=== PATIENT | female | born 1970 | race Caucasian/White ===

== ENCOUNTER 2025-09-19 08:05 | Outpatient (REF) | payer MEDICAID, SELFPAY ==
--- OUTSIDE RECORDS SUMMARY | 2025-09-18 11:00 | XMS_ITS | Encounter Summary ---
Author Organization [employer] Address [address] [place] [address] [address] [place] [address] Care Team Providers Care Dietary Clerk Name Role Phone Ivy Jimenez DO Primary Care Provider Reason for Referral * Consultation (Urgent) - Pending Review Specialty Diagnoses / Procedures Referred By Jason templeton Referred To Contact Gastroenterology Diagnoses Colon cancer screening Ivy Jimenez DO [address] [place] [address] Phone: tel: fax: Referral ID Status Reason Start Date Expiration Date Visits Requested Visits Authorized [id number] Pending Review Specialty Services Required 09/18/2026 1 1 * Imaging (Routine) - Authorized Specialty Diagnoses / Procedures Referred By Jason templeton Referred To Contact Radiology Diagnoses Breast cancer screening by mammogram Procedures BI Mammogram Screening Tomosynthesis Bilateral Ivy Jimenez DO [address] [place] [address] Phone: tel: fax: [facility] Referral ID Status Reason Start Date Expiration Date V isits Requested Visits Authorized [id number] Authorized 09/18/2025 09/18/2026 1 1 Encounter Details Date Type Department Care Team (Late st Contact Info) Description 09/18/2025 11:00 AM EDT Office Visit [facility] [address] [place] [address] StuartIvy ospina, DO [address] [place] [address] Routine history and physical examination of adult (Primary Dx); BMI 31.0-31.9,adult; Dietary counseling; Exercise counseling; Breast cancer screening by mammogram; Colon cancer screening; Encounter for immunization Social History Tobacco Use Types Packs/Day Years Used Date Smoking Tobacco: Never Smokeless Tobacco: Never Tobacco Cessation:Counseling Given: Not Answered Alcohol Use Standard Drinks/Week Comments Never 0 (1 standard drink = 0.6 oz pur e alcohol) Depression Answer Date Recorded Patient Health Questionnaire-9 Score 0 09/18/2025 Patient Health Questionnaire-9 Score 0 09/18/2025 Last PHQ-9: Questionnaire Data Not on file 1 Housing Stability Answer Date Recorded What is your housing situation today? I have darlyn shultz 09/18/[address] you li ve. Do you have problems with any of the following? None of the above 09/18/2025 Food Insecurity Answer Date Recorded Within the past 12 months, y ou worried that your food would run out before you got money to buy more: Never True 09/18/2025 Within the past 12 months,th e food you bought just didn't last and you didn't have enough money to get more: Never True Transportation Answer Date Recorded In the past 12 months, has l ack of transportation kept you from medical appts, meetings, work or from getting things needed for daily living? No 09/18/2025 Depression Answer Date Recorded Patient Health Questionnaire-2 Score 0 09/18/2025 Internet Access Answer Date Recorded Internet Access Q1 Yes 09/18/2025 Internet Access Q2 Not on file 09/18/2025 Comments No Sex and Gender Information Value Date Recorded Sex Assigned at Female 09/21/2022 10:16 AM EDT Legal Sex Female 10:16 AM EDT Gender Identity Female 09/21/2022 10:16 AM EDT Sexual Orientation Choose not to disclose 2024 3:16 PM EDT documented as of this encounter Last Filed Vital Signs Vital Sign Reading Time Taken Comments Blood Pressure 124/88 09/18/2025 2:11 PM EDT Pulse 90 09/18/2025 10:44 AM EDT Temperature 36.6 C (97.9 F) 09/18/2025 10:44 AM EDT Respiratory Rate 21 09/18/2025 10:44 AM EDT Oxygen Saturation 98% 09/18/2025 10:44 AM EDT Inhaled Oxygen Concentration - - Weight 95.3 kg (210 lb) 09/18/2025 10:44 AM EDT Height 172.7 cm (5' 8 ) 09/18/2025 10:44 AM EDT Body Mass Index 31.93 09/18/2025 10:44 AM EDT documented in this encounter Functional Status * Over the past 2 weeks, how often have you been bothered by any of the following problems? Question Answer Date of Assessment Author Patient Health Questionnaire -2 Score 0 09/18/2025 10:46 AM EDT Judith Munson MA * Little interest or pleasure in doing things Answer Date of Assessment Author Not at all 09/18/2025 10:46 AM EDT Judith Munson MA * Feeling down, depressed, or hopeless Answer Date of Assessment Author Not at all 09/18/2025 10:46 AM EDT Judith Munson MA * Trouble falling or staying asleep, or sleeping too much Answer Date of Assessment Author Not at all 09/18/2025 10:46 AM EDT Judith Munson MA * Feeling tired or having little energy Answer Date of Assessment Author Not at all 09/18/2025 10:46 AM EDT Judith Munson MA * Poor appetite or overeating Answer Date of Assessment Author Not at all 09/18/2025 10:46 AM EDT Judith Munson MA * Feeling bad about yourself - or that you are a failure or have let yourself or your family down Answer Date of Assessment Author Not at all 09/18/2025 10:46 AM EDT Judith Munson MA * Trouble concentrating on things, such as reading the newspaper or watching television Answer Date of Assessment Author Not at all 09/18/2025 10:46 AM EDT Judith Munson MA * Moving or speaking so slowly that other people could have noticed? Or the opposite - being so fidgety or restless that you have been moving around a lot more than usual. Answer Date of Assessment Author Not at all 09/18/2025 10:46 AM OLIVIAT Judith Munson MA * Thoughts that you would be better off or hurting yourself in some way Answer Date of Assessment Author Not at all 09/18/2025 10:46 AM Judith Ferrell MA * Patient Health Questionnaire-9 Score Answer Date of Assessment Author 0 09/18/2025 10:46 AM OLIVIAT Judith Munson MA * Over the last 2 weeks, how often have you been bothered by any of the following problems? Question Answer Date of Assessment Author Feeling nervous, anxious, or on edge 0 09/18/2025 10:46 AM OLIVIAT Judith Munson MA Not being able to stop or co ntrol worrying 0 09/18/2025 10:46 AM Judith Ferrell MA Worrying too much about diff erent things 0 09/18/2025 10:46 AM Judith Ferrell MA Trouble relaxing 0 09/18/2025 10:46 AM Judith Ferrell MA Being so restless that it is hard to sit still 0 09/18/2025 10:46 AM Judith Ferrell MA Becoming easily annoyed or irritable 0 09/18/2025 10:46 AM OLIVIAT Judith Munson MA Feeling afraid as if somethi ng awful might happen 0 09/18/2025 10:46 AM Judith Ferrell MA MARIANN-7 Total Score 0 09/18/2025 10:46 AM Judith Ferrell MA documented as of this encounter Progress Notes * Ivy Jimenez, - 09/18/2025 11:00 AM EDT SUBJECTIVE Alexandre Arroyo is a 55 y.o. female who presents for PE to establish care with new PCP. She last had PCP in [place] ~ two years ago. HPI She has no concerns. She says that most of her siblings have hypertension and diabetes. Her grandparents had diabetes and hypertension but of old age. Her dad is 87 and mom is 76. She is still getting regular periods. She has not had any heartburn since she was treated for H. Pylori in the past. She checks her BP sometimes at work and usually 120s/70s but sometimes her bottom number is elevated. She follows annually with Eye care. She says that they have monitoring her cataracts and may need surgery. She lives with her 14 year old dtr with trisomy 21. She has 6 kids, 14 grandkids and one on the way. She is not currently in a relationship; sexually active with a friend. She has never smoked tobacco. She drinks alcohol occasionally. No drug use. 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 Her last mammo was ~ 4 years ago at [facility]. She was supposed to get a f/u US but never went. She has no pain or breast symptoms. She says that it's been a long time since she had a pap. She says that her last > 14 years but they have always been normal. She has never had a colonoscopy but wants to do one now. Review of Systems Constitutional: Negative for chills and fever. Respiratory: Negative for shortness of breath. Cardiovascular: Negative for chest pain and leg swelling. Gastrointestinal: Negative for abdominal pain, diarrhea and vomiting. Neurological: Negative for headaches. Patient Active Problem List Diagnosis History of COVID-19 History of Helicobacter pylori infection History of nephrolithiasis BMI 31.0-31.9,adult No Known Allergies Past Medical History: Diagnosis Date Nephrolithiasis Past Surgical History: Procedure Laterality Date LITHOTRIPSY 2014 Family History Problem Relation Name Age of Onset Diabetes Mother Hypertension Mother Basal cell carcinoma Mother COPD Father Diabetes Father Hypertension Father Other (Chronic kidney disease) Father Asthma Father Heart attack Father Stroke Sister OBJECTIVE Visit Vitals BP 124/88 (BP Location: Left arm, Patient Position: Sitting, BP Cuff Size: Large adult) Pulse 90 Temp 97.9 ??F (36.6 ??C) (Oral) Resp 21 Ht 5' 8 (1.727 m) Wt 210 lb (95.3 kg) LMP 08/06/2025 (Approximate) SpO2 98% BMI 31.93 kg/m?? OB Status Having periods Smoking Status Never BSA 2.14 m?? Physical Exam Constitutional: Appearance: Normal appearance. HENT: Right Ear: Tympanic membrane, ear canal and external ear normal. Left Ear: Tympanic membrane, ear canal and external ear normal. Nose: Nose normal. Mouth/Throat: Pharynx: Oropharynx is clear. Eyes: Extraocular Movements: Extraocular movements intact. Conjunctiva/sclera: Conjunctivae normal. Pupils: Pupils are equal, round, and reactive to light. Cardiovascular: Rate and Rhythm: Normal rate and regular rhythm. Heart sounds: Normal heart sounds. No murmur heard. Pulmonary: Effort: Pulmonary effort is normal. Breath sounds: Normal breath sounds. Abdominal: General: Bowel sounds are normal. Palpations: Abdomen is soft. There is no mass. Tenderness: There is no abdominal tenderness. Musculoskeletal: General: Normal range of motion. Cervical back: Normal range of motion. Lymphadenopathy: Cervical: No cervical adenopathy. Skin: General: Skin is warm and dry. Neurological: General: No focal deficit present. Mental Status: She is alert and oriented to person, place, and time. Cranial Nerves: No cranial nerve deficit. Psychiatric: Mood and Affect: Mood normal. Patient Health Questionnaire-9 Score: 0 (09/18/2025 10:46 AM) MARIANN-7 Total Score: 0 (09/18/2025 10:46 AM) Assessment/Plan Diagnoses and all orders for this visit: Routine history and physical examination of adult -s/p flu vaccine Aug 2025 -she declines COVID vaccine -Tdap today -PCV20 today -encouraged shingrix vaccine -referred for screening mammo -will have pap appointment scheduled -referred for screening colonoscopy -check basic labs -STI/HIV screening -start intermittent home BP monitoring - T4, Free; Future - Lipid Panel, Standard; Future - TSH; Future - Vitamin D, 25-Hydroxy, Total, Immunoassay; Future - Hepatic Function Panel; Future - Hemoglobin A1c; Future - CBC; Future - Basic Metabolic Panel; Future - Hepatitis B surface antigen, EIA; Future - Chlamydia/N. Gonorrhoeae RNA, TMA, Urogenitial - HIV-1/2 Antigen and Antibodies, Fourth Generation, with Reflexes; Future - Hepatitis C Antibody with Reflex to HCV, RNA, Quantitative, Real-Time PCR; Future - RPR (Monitor) with Reflex to Titer; Future - Hepatitis B Surface Antibody, Qualitative; Future - Varicella zoster antibody, IgG; Future - Measles, Mumps, and Rubella (MMR) Antibodies (IgG) Panel, Immune Status; Future - T-SPOT??.TB; Future - Hepatitis A Antibody, Total; Future - Hepatitis B Core Antibody, Total; Future BMI 31.0-31.9,adult Dietary counseling Exercise counseling -check fasting labs -encouraged [id number] Breast cancer screening by mammogram - BI Mammogram Screening Tomosynthesis Bilateral; Future Colon cancer screening - Referral to Gastroenterology; Future Encounter for immunization - PCV-20 VACCINE 6 wks + - TDAP VACCINE 7 yrs + --Follow-up with me for pap or sooner prn-- Current Outpatient Medications: Blood Pressure kit, 1 each 1 (one) time per week., Disp: 1 kit, Rfl: 0 documented in this encounter Plan of Treatment Scheduled Orders Name Type Priority Associated Diagnoses Orde r Schedule T4, Free Lab Routine Routine history and physical examination of adult Expected: 09/18/2025 (Approximate), Expires: 09/18/2026 Lipid Panel, Standard Lab Routine Routine history and physical examination of adult Expected: 09/18/2025 (Approximate), Expires: 09/18/2026 TSH Lab Routine Routine history and physical examination of adult Expected: 09/18/2025 (Approximate), Expires: 09/18/2026 Vitamin D, 25-Hydroxy, Total, Immunoassay Lab Routine Routine history and physical examination of adult Expected: 09/18/2025 (Approximate), Expires: 09/18/2026 Hepatic Function Panel Lab Routine Routine history and physical examination of adult Expected: 09/18/2025 (Approximate), Expires: 09/18/2026 Hemoglobin A1c Lab Routine Routine history and physical examination of adult Expected: 09/18/2025 (Approximate), Expires: 09/18/2026 CBC Lab Routine Routine history and physical examination of adult Expected: 09/18/2025, Expires: 09/18/2026 Basic Metabolic Panel Lab Routine Routine history and physical examination of adult Expected: 09/18/2025 (Approximate), Expires: 09/18/2026 Hepatitis B surface antigen, EIA Lab Routine Routine history and physical examination of adult Expected: 09/18/2025 (Approximate), Expires: 09/18/2026 Chlamydia/N. Gonorrhoeae RNA, TMA, Urogenitial Microbiology Routine Routine history and physical examination of adult Ordered: 09/18/2025 HIV-1/2 Antigen and Antibodies, Fourth Generation, with Reflexes Lab Routine Routine history and physical examination of adult Expected: 09/18/2025 (Approximate), Expires: 09/18/2026 Hepatitis C Antibody with Reflex to HCV, RNA, Quantitative, Real-Time PCR Lab Routine Routine history and physical examination of adult Expected: 09/18/2025, Expires: 09/18/2026 RPR (Monitor) with Reflex to Titer Lab Routine Routine history and physical examination of adult Expected: 09/18/2025, Expires: 09/18/2026 Hepatitis B Surface Antibody, Qualitative Lab Routine Routine history and physical examination of adult Expected: 09/18/2025 (Approximate), Expires: 09/18/2026 Varicella zoster antibody, IgG Lab Routine Routine history and physical examination of adult Expected: 09/18/2025 (Approximate), Expires: 09/18/2026 Measles, Mumps, and Rubella (MMR) Antibodies (IgG) Panel, Immune Status Lab Routine Routine history and physical examination of adult Expected: 09/18/2025 (Approximate), Expires: 09/18/2026 T-SPOT .TB Lab Routine Routine history and physical examination of adult Expected: 09/18/2025 (Approximate), Expires: 09/18/2026 Hepatitis A Antibody, Total Lab Routine Routine history and physical examination of adult Expected: 09/18/2025 (Approximate), Expires: 09/18/2026 Hepatitis B Core Antibody, Total Lab Routine Routine history and physical examination of adult Expected: 09/18/2025 (Approximate), Expires: 09/18/2026 BI Mammogram Screening Tomosynthesis Bilateral Imaging Routine Breast cancer screening by mammogram Expected: 09/18/2025, Expires: 11/18/2026 Scheduled Referrals Name Type Priority Associated Diagnoses Order Schedule Referral to Gastroenterology Outpatient Referral Urgent Colon cancer screening Expected: 09/18/2025 (Approximate), Expires: 09/18/2026 documented as of this encounter Visit Diagnoses Diagnosis Routine history and physical examination of adult- Primary BMI 31.0-31.9,adult Dietary counseling Dietary surveillance and counseling Exercise counseling Breast cancer screening by mammogram Colon cancer screening Special screening for malignant neoplasms, colon Encounter for immunization documented in this encounter Additional Health Concerns Assessment Noted Time PHQ-9 Depression Total Score: 0 09/18/20 10:46 AM EDT documented as of this encounter Care Teams Dietary Clerk Relationship Specialty Start Date End Date Ivy Jimenez DO [address] [place] [address] PCP - General Family Medicine 09/18/25 documented as of this encounter
--- OUTSIDE RECORDS SUMMARY | 2025-09-19 08:19 | XMS_ITS | Encounter Summary ---
Author Organization [employer] Address [address] [place] [address] Care Team Providers Care Seed Yeast Operator Name Role Phone ZakIvy pepe Primary Care Provider + [phone] Encounter Details Date Type Department Care Team (Latest Contact Info) Description 09/18/2025 Travel Social History Tobacco Use Types Packs/Day Years Used Date Smoking Tobacco: Never Smokeless Tobacco: Never Alcohol Use Standard Drinks/Week Comments Never 0 [...] PM EDT documented as of this encounter Functional Status * Over the [...] 10:46 AM OLIVIAT Judith Munson MA * Feeling down, depressed, or hopeless Answer Date of Assessment Author Not at all 09/18/2025 10:46 AM Judith Ferrell MA * Trouble falling or staying asleep, or sleeping too much Answer Date of Assessment Author Not at all 09/18/2025 10:46 AM EDT Judith Munson MA * Feeling tired or having little energy Answer Date of Assessment Author Not at all 09/18/2025 10:46 AM OLIVIAT Judith Munson MA * Poor appetite or overeating Answer Date of Assessment Author Not at all 09/18/2025 10:46 AM Judith Ferrell MA * Feeling bad about yourself - or that you are a failure or have let yourself or your family down Answer Date of Assessment Author Not at all 09/18/2025 10:46 AM EDJudith Hilliard MA * Trouble concentrating on things, such as reading the newspaper or watching television Answer Date of Assessment Author Not at all 09/18/2025 10:46 AM Judith Ferrell MA * Moving or speaking so slowly that other people could have noticed? Or the opposite - being so fidgety or restless that you have been moving around a lot more than usual. Answer Date of Assessment Author Not at all 09/18/2025 10:46 AM Judith Ferrell MA * Thoughts that you would be better off or hurting yourself in some way Answer Date of Assessment Author Not at all 09/18/2025 10:46 AM EDT Judith Munson MA * Patient Health Questionnaire-9 Score Answer Date of Assessment Author 0 09/18/2025 10:46 AM EDT Judith Munson MA * Over the last 2 weeks, how often have you been bothered by any of the following problems? Question Answer Date of Assessment Author Feeling nervous, anxious, or on edge 0 09/18/2025 10:46 AM EDT Judith Munson MA Not being able to stop or co ntrol worrying 0 09/18/2025 10:46 AM EDT Judith Munson MA Worrying too much about diff erent things 0 09/18/2025 10:46 AM EDT Judith Munson MA Trouble relaxing 0 09/18/2025 10:46 AM EDT Judith Munson MA Being so restless that it is hard to sit still 0 09/18/2025 10:46 AM EDT Judith Munson MA Becoming easily annoyed or irritable 0 09/18/2025 10:46 AM EDT Judith Munson MA Feeling afraid as if somethi ng awful might happen 0 09/18/2025 10:46 AM EDT Judith Munson MA MARIANN-7 Total Score 0 09/18/2025 10:46 AM EDT Judith Munson MA documented as of this encounter Plan of Treatment Not on file documented as of this encounter Visit Diagnoses Not on filedocumented in this encounter Additional Health Concerns Assessment Noted Time PHQ-9 Depression Total Score: 0 09/18/20 10:46 AM EDT documented as of this encounter Care Teams Seed Yeast Operator Relationship Specialty Start Date End Date Ivy Jimenez DO [address] [place] [address] PCP - General Family Medicine 09/18/25 documented as of this encounter
--- OUTSIDE RECORDS SUMMARY | 2025-09-19 08:19 | XMS_ITS | Clinical Summary ---
Author Organization [employer] Address [address] [facility] [address] [place] [address] Care Team Providers Care Cigarette Machine Filler Name Role Phone Ivy Jimenez DO Primary Care Provider Allergies No known active allergies Medications Blood Pressure kit 1 each 1 (one) time per week. 1 kit 09/18/2025 Active Active Problems Problem Noted Date Diagnosed Date History of nephrolithiasis 09/18/2025 BMI 31.0-31.9,adult 09/18/2025 History of COVID-19 09/14/2025 History of Helicobacter pylori infection 025 Encounters Date Type Department Care Team Description 09/18/2025 11:00 AM EDT Office Visit [facility] [address] [place] [address] Ivy Jimenez DO Routine history and physical examination of adult (Primary Dx); BMI 31.0-31.9,adult; Dietary counseling; Exercise counseling; Breast cancer screening by mammogram; Colon cancer screening; Encounter for immunization 09/18/2025 Travel 09/11/2025 Patient Outreach [facility] [address] [place] [address] Ivy Jimenez DO Pre-visit Planning (SDOH unable to reach [facility] ) 09/05/2025 2:10 PM EDT Immunization [facility] [address] [place] [address] May Solis RN Encounter for immunization 09/05/2025 Travel 08/29/2025 Travel 08/28/2025 Travel 08/27/2025 Telephone [facility] [address] [place] [address] Ivy Jimenez DO Chart Prep from Last 3 Months Immunizations Immunization Administration Dates Next Due Influenza, seasonal, injectable, preservative fr ee 09/05/2025 Pfizer Covid-19 Vaccine 12+ 09/12/2021, Pneumococcal Conjugate PCV 20 09/18/2025 Tdap 09/18/2025 Family History Medical History Relation Name Comments Asthma Father COPD Father Chronic kidney disease Father Diabetes Father Heart attack Father Hypertension Father Basal cell carcinoma Mother Diabetes Mother Hypertension Mother Stroke Sister Relation Name Status Comments Father Alive Mother Alive Sister Social History Tobacco Use Types Packs/Day Years [...] not to disclose 2024 3:16 PM EDT Last Filed Vital Signs Vital Sign Reading [...] Mass Index 31.93 09/18/2025 10:44 AM EDT Plan of Treatment Health Maintenance Due Date Last Done Comments CT Colonography 1971 Colonoscopy 1971 Colorectal Cancer Screening 1971 FIT DNA/Cologuard 1971 FIT 1971 FOBT 1971 HIV Screening 1971 SDOH Screening 1971 Sigmoidoscopy 1971 Hepatitis C Screening 1989 Hepatitis B Vaccines (1 of 3 - 19+ 3-dose series) 1990 Pap Smear 1992 Cervical Cancer Screening 2001 HPV/Cotest 2001 Mammogram 2011 Zoster Vaccines (1 of 2) 2021 COVID-19 Vaccine (3 - 2024-2 6 season) 2025 09/12/2021, 08/15/2021 Alcohol/Substance Use Screening 09/18/2026 09/18/2025 Depression Screening 09/18/2026 09/18/2025, 09/18/2025 Disability Screening 09/18/2026 09/18/2025 Tobacco Screening 09/18/2026 09/18/2025 DTaP/Tdap/Td Vaccines (2 - T d or Tdap) 09/18/2035 09/18/2025 RSV Patients and Patients Aged 60 years or older (1 - 1-dose 75+ series) 2046 Influenza Vaccine Completed 09/05/2025 Pneumococcal Vaccine: 50+ Years Completed 09/18/2025 HIB Vaccines Aged Out No longer eligi ble based on patient's age to complete this topic HPV Vaccines Aged Out No longer eligi ble based on patient's age to complete this topic Hepatitis A Vaccines Aged Out No long er eligible based on patient's age to complete this topic IPV Vaccines Aged Out No longer eligi ble based on patient's age to complete this topic Meningococcal B Vaccine Aged Out No l onger eligible based on patient's age to complete this topic Meningococcal Vaccine Aged Out No lakshmi edward eligible based on patient's age to complete this topic RSV under 20 months Aged Out No longe r eligible based on patient's age to complete this topic Rotavirus Vaccines Aged Out No longer eligible based on patient's age to complete this topic Insurance , [address] [place] [address] Care Teams Cigarette Machine Filler Relationship Specialty Start Date End Date Ivy Jimenez DO [address] [place] [address], [place] [address] PCP - General Family Medicine 09/18/25
[2025-09-19 14:07] LABS: Hematocrit 38.7 % (37.0-47.0); Hemoglobin 12.3 g/dl (12.0-16.0); Mean Corpuscular HGB Conc 31.8 g/dl (31.0-35.0); Mean Corpuscular Hemoglobin 27.0 pg (27.0-33.0); Mean Corpuscular Volume 85.1 fL (80.0-98.0); NRBC Abs Auto 0.000 X10*3/uL (0.0-0.012); NRBC Pct Auto 0.0 /100WBC (0.0-0.2); Platelet Count 324 X10*3/uL (160-400); Red Blood Count 4.55 X10*6/uL (4.20-5.50); White Blood Count 8.6 X10*3/uL (4.8-10.8)
[2025-09-19 14:26] LABS: Alanine Aminotransferase 21 U/L (0-31); Albumin Level 4.3 g/dL (3.5-5.0); Alkaline Phosphatase 75 U/L (39-117); Anion Gap 10 (12-20); Aspartate Amino Transferase 27 U/L (5-31); Blood Urea Nitrogen 17 mg/dL (9-16); Calcium 8.9 mg/dL (8.4-10.2); Carbon Dioxide 26 mmol/L (22-29); Chloride 107 mmol/L (96-108); Cholesterol 172 mg/dL (<200); Estimated Glomerular Filt Rate > 60; HDL Cholesterol 44 mg/dL (>40); Potassium 3.6 mmol/L (3.3-5.1); Sodium 139 mmol/L (135-145); Total Protein 7.1 g/dL (6.5-8.0); Triglycerides 85 mg/dL (<150)
[2025-09-19 14:48] LABS: Free T4 (Free Thyroxine) 0.87 ng/dL (0.71-1.85); Thyroid Stimulating Hormone 0.64 uIU/mL (0.32-4.0)
[2025-09-20 04:40] LABS: HBS Num1 0.63 mIU/mL (0-7.99); HBc Num1 0.34 S/CO (0.00-0.79); HBsAGNum1 0.38 S/CO (0.00-0.99); HIV Num 1 0.06 S/CO (0.00-0.99); Hepatitis B Surface Antigen Negative (Negative); ~HepC Num1 0.21 S/CO (0.00-0.79); ~Hepatitis B Surface Antibody NONREACTIVE (Nonreactive); ~Hepatitis C Antibody Nonreactive (Nonreactive)
[2025-09-20 06:04] LABS: Rubeola IgG (Measles) 124.00 AU/mL
[2025-09-21 04:40] LABS: ~Hepatitis A Antibody IgG 0.67 S/CO (0.00-0.99)
[2025-09-22 10:19] LABS: TS Negative Control Passed; TS Panel A 0; TS Panel B 0; TS Positive Control Passed; TSpotTB Negative (Negative)
== END 2025-09-19 08:06 | disposition home or self-care (01) ==
LOC: HO.CHCLDS 08:05
PROVIDERS: Visit Provider Family Medicine
DX: Z00.00 Encounter for general adult medical examination without abnormal findings (principal)
CPT/HCPCS: 36415; 80048; 80061; 80076; 82306; 83036; 84439; 84443; 85027; 86481; 86592; 86704; 86706; 86708; 86735; 86762; 86765; 86787; 86803; 87340; 87389